=== PATIENT | female | born 1940 | race Caucasian/White ===

== ENCOUNTER 2016-03-23 07:34 | Outpatient (CLI) | payer MEDICARE | END 2016-03-23 07:35 | disposition home or self-care (01) | DX: M51.36 Other intervertebral disc degeneration, lumbar region (principal); M48.8X6 Other specified spondylopathies, lumbar region; M51.46 Schmorl's nodes, lumbar region ==

== ENCOUNTER 2016-05-03 07:55 | Outpatient (CLI) | payer MEDICARE ==
[2016-05-03] MEDS ORDERED: GADOBUTROL 7.5 MMOL/7.5 ML VIAL IVP ONE (09:20)
== END 2016-05-03 07:56 | disposition home or self-care (01) ==
DX: M51.36 Other intervertebral disc degeneration, lumbar region (principal); M51.26 Other intervertebral disc displacement, lumbar region; M51.27 Other intervertebral disc displacement, lumbosacral region; M51.46 Schmorl's nodes, lumbar region; M47.816 Spondylosis without myelopathy or radiculopathy, lumbar region
CPT/HCPCS: 36415; 72158; 80048; A9585

== ENCOUNTER 2016-06-02 10:47 | Outpatient (CLI) | payer MEDICARE | END 2016-06-02 10:48 | disposition home or self-care (01) | DX: M50.31 Other cervical disc degeneration, high cervical region (principal); M47.812 Spondylosis without myelopathy or radiculopathy, cervical region; M43.12 Spondylolisthesis, cervical region ==

== ENCOUNTER 2016-06-18 07:47 | Outpatient (CLI) | payer MEDICARE ==
[2016-06-18] MEDS ORDERED: GADOBUTROL 7.5 MMOL/7.5 ML VIAL IVP ONE (09:41)
== END 2016-06-18 07:48 | disposition home or self-care (01) ==
DX: M50.30 Other cervical disc degeneration, unspecified cervical region (principal); M54.5 Low back pain
CPT/HCPCS: 36415; 72156; 80048; A9585

== ENCOUNTER 2016-08-16 16:20 | Outpatient (CLI) | payer MEDICARE | END 2016-08-16 16:21 | disposition home or self-care (01) | LOC: LAB.WCP 16:20 | PROVIDERS: ATTEND Family Medicine | DX: E03.9 Hypothyroidism, unspecified (principal) | CPT/HCPCS: 36415; 84443 ==

== ENCOUNTER 2016-08-17 10:43 | Outpatient (CLI) | payer MEDICARE ==
--- NOTE | 2016-08-17 13:41 | Mammography Report ---
DIGITAL DIAGNOSTIC BILATERAL MAMMOGRAM: 08/17/2016 CLINICAL INDICATION: Left lateral breast pain, a sister with history of breast cancer. COMPARISON: 07/23/2015, 06/24/2014, 05/17/2013, 05/16/2012, 05/04/2011, 05/01/2010, 04/02/2009. TECHNIQUE: Bilateral CC and MLO, left true lateral and laterally exaggerated craniocaudal views. Th e patient described the pain as diffuse throughout the lateral breast, so no marker could be placed. FINDINGS: The breasts again demonstrate scattered fibroglandular densities bilaterally. Intramammar y lymph nodes are unchanged. No suspicious masses, clustered microcalcifications, or regions of arch itectural distortion are identified. IMPRESSION: BENIGN FINDINGS. RECOMMENDATION: Routine annual screening unless otherwise clinically indicated. BI-RADS category 2, benign findings. STANDARD QUALIFYING STATEMENTS 1. This examination was reviewed with the aid of Computer-Aided Detection (CAD). 2. A negative or benign imaging report should not delay biopsy if clinically suspicious findings are present. Consider surgical consultation if warranted. More than 5% of cancers are not identified by i maging. 3. Dense breasts may obscure an underlying neoplasm. JOB #: [id number] EXT JOB #:[id number]
== END 2016-08-17 10:44 | disposition home or self-care (01) ==
LOC: DI 10:43
PROVIDERS: ATTEND Family Medicine
DX: N64.4 Mastodynia (principal)
CPT/HCPCS: 77066

== ENCOUNTER 2016-08-22 14:53 | Outpatient (CLI) | payer MEDICARE | END 2016-08-22 14:54 | disposition home or self-care (01) | LOC: LAB.F 14:53 | PROVIDERS: ATTEND Neurological Surgery | DX: Z01.812 Encounter for preprocedural laboratory examination (principal) | CPT/HCPCS: 36415; 82565; 84520 ==

== ENCOUNTER 2017-08-03 13:36 | Outpatient (CLI) | payer MEDICARE | END 2017-08-03 13:37 | disposition home or self-care (01) | LOC: LAB.F 13:36 | PROVIDERS: ATTEND Family Medicine | DX: E03.9 Hypothyroidism, unspecified (principal) | CPT/HCPCS: 36415; 84443 ==

== ENCOUNTER 2017-08-25 10:26 | Outpatient (CLI) | payer MEDICARE ==
[2017-08-25 13:57] LABS: HB2 TOTAL 13.7 g/dL; HEMOGLOBIN A1C 0.45 g/dL; HEMOGLOBIN A1C % 5.2 % (4.6-6.2)
[2017-08-25 14:14] LABS: ALBUMIN 3.9 g/dL (3.2-5.5); ALBUMIN/GLOBULIN RATIO 1.1 (1.0-2.2); BILIRUBIN,TOTAL 0.5 mg/dL (0.2-1.0); CALCIUM 9.3 mg/dL (8.5-10.3); CREATININE 0.8 mg/dL (0.4-1.0); TOTAL PROTEIN 7.5 g/dL (6.7-8.2)
== END 2017-08-25 10:27 | disposition home or self-care (01) ==
LOC: LAB.WCP 10:26
PROVIDERS: ATTEND Family Medicine
DX: R10.9 Unspecified abdominal pain (principal); R73.01 Impaired fasting glucose
CPT/HCPCS: 36415; 80053; 83036

== ENCOUNTER 2017-08-28 10:34 | Outpatient (CLI) | payer MEDICARE ==
--- NOTE | 2017-08-31 15:35 | Mammography Report ---
Procedure Date: 08/28/2017 Accession Number: [id number] / [id number] Procedure: MARICHUY - Screening Mammo Dig Bilat CPT Code: FULL RESULT: EXAM: Screening Mammo Dig Bilat DATE: 08/28/2017 11:00 AM CLINICAL HISTORY: 76-year-old with family history of breast cancer for screening TECHNIQUE: Bilateral CC and MLO views were obtained. COMPARISON: 08/17/2016, 07/23/2015, 06/24/2014, 05/09/2013, 05/16/2012, 05/04/2011, 05/01/2010, 04/02/2009 FINDINGS: The breasts demonstrate diffuse fatty replacement bilaterally. Intramammary lymph node in the left breast is stable. A few punctate, typically benign calcifications are present. No suspicious masses, clustered microcalcifications, or regions of architectural distortion are identified. IMPRESSION: Benign findings RECOMMENDATION: Routine annual screening unless otherwise clinically indicated. BIRADS CATEGORY 2: Benign findings STANDARD QUALIFYING STATEMENTS: 1. This examination was reviewed with the aid of Computer-Aided Detection (CAD). 2. A negative or benign imaging report should not delay biopsy if clinically suspicious findings are present. Consider surgical consultation if warrented. More than 5% of cancers are not identified by imaging. 3. Dense breasts may obscure an underlying neoplasm.
== END 2017-08-28 10:35 | disposition home or self-care (01) ==
LOC: DI 10:34
PROVIDERS: ATTEND Family Medicine
DX: Z12.31 Encounter for screening mammogram for malignant neoplasm of breast (principal); Z80.3 Family history of malignant neoplasm of breast
CPT/HCPCS: 77067

== ENCOUNTER 2017-09-08 12:57 | Outpatient (CLI) | payer MEDICARE ==
--- NOTE | 2017-09-08 15:50 | Ultrasound Report ---
Procedure Date: 09/08/2017 Accession Number: [id number] / [id number] Procedure: US - Abdomen Complete CPT Code: FULL RESULT: EXAM: Abdomen Complete DATE: 09/08/2017 3:19 PM CLINICAL HISTORY: ABDOMINAL PAIN COMPARISON: None. TECHNIQUE: Real-time scanning was performed with static images obtained. FINDINGS: Liver: Normal in size and echotexture. 13.3 cm. Main portal vein flow: Hepatopetal. Gallbladder: No stones, wall thickening, or sonographic Barnhart's sign. Biliary System: Common bile duct measures 3.4 mm. No intrahepatic or extrahepatic ductal dilatation. Pancreas: Imaged portion is unremarkable. Kidneys: Right: 9.3 cm longitudinally. Normal. No contour-deforming mass, stones, or hydronephrosis. Left: 9.7 cm longitudinally. Normal. No contour-deforming mass, stones, or hydronephrosis. Spleen: 8.5 cm. Normal in size and echotexture. Aorta and Inferior Vena Cava: Unremarkable. Free fluid: None IMPRESSION: Normal abdomen ultrasound. RADIA
== END 2017-09-08 12:58 | disposition home or self-care (01) ==
LOC: DI 12:57
PROVIDERS: ATTEND Family Medicine
DX: R10.9 Unspecified abdominal pain (principal)
CPT/HCPCS: 76700

== ENCOUNTER 2018-03-30 14:45 | Outpatient (CLI) | payer MEDICARE ==
--- NOTE | 2018-04-02 12:01 | DEXA Report ---
Reason: ASYMPTOMATIC MENOPAUSAL STATE Procedure Date: 03/30/2018 Accession Number: [id number] / [id number] Procedure: DEX - Dexa Spine and/or Hip CPT Code: FULL RESULT: EXAM: Dexa Spine and/or Hip DATE: 03/30/2018 3:15 PM CLINICAL HISTORY: ASYMPTOMATIC POST MENOPAUSAL STATE TECHNIQUE: Dual energy x-ray absorptiometry (DXA) was performed on a [employer] System. Regions measured are the AP Spine, femoral neck, and if needed forearm. COMPARISON: 04/11/2007 In accordance with the International Society for Clinical Densitometry (ISCD) guidelines, data from previous exams may be reanalyzed using current recommendations and techniques. This is done to allow a more accurate basis for comparison with the current study. FINDINGS: The data for the lumbar spine is as follows: BMD (g/cm/cm) T-SCORE Z-SCORE REGION L1 1.051 -0.7 1.5 L2 1.250 0.4 2.6 L3 1.390 1.6 3.8 L4 1.099 -0.8 1.4 TOTAL 1.193 0.1 2.3 NOTE: All evaluable vertebrae are used for classification The data for the hip is as follows: BMD (g/cm/cm) T-SCORE Z-SCORE REGION Neck 0.904 -1.0 1.4 TOTAL 0.947 -0.5 1.7 NOTE: The femoral neck or total proximal femur, whichever is lowest, is used for classification. IMPRESSION: THE WHO CLASSIFICATION BASED ON THE INTERNATIONAL REFERENCE STANDARD IS NORMAL. THE FRACTURE RISK IS NOT INCREASED. RECOMMENDATION: Patients with diagnosis of osteoporosis or osteopenia should have regular bone mineral density assessment. For those eligible for Medicare, routine testing is allowed once every 2 years. Testing frequency can be increased for patients who have rapidly progressing disease or for those who are receiving medical therapy to restore bone mass. COMMENT: World Health Organization (WHO) definitions for osteoporosis and osteopenia: NORMAL BMD: T-score at -1.0 or higher, fracture risk is low OSTEOPENIA BMD: T-score between -1.0 and -2.5, fracture risk is increased. OSTEOPOROSIS BMD: T-score at -2.5 or lower, fracture risk is high. National Osteoporosis Foundation recommends: 1. Obtain adequate dietary calcium (at least 1200 mg per day) and vitamin D (400-800 international units per day). 2. Participate, as appropriate, in regular weightbearing and muscle-strengthening exercise. 3. Avoid tobacco use and reduce alcohol and caffeine intake. 4. For more detailed information see the website at www.NOF.org.
== END 2018-03-30 14:46 | disposition home or self-care (01) ==
LOC: DI 14:45
PROVIDERS: ATTEND Internal Medicine
DX: Z78.0 Asymptomatic menopausal state (principal)
CPT/HCPCS: 77080

== ENCOUNTER 2018-06-28 08:00 | Outpatient (CLI) | payer MEDICARE | END 2018-06-28 23:59 | disposition home or self-care (01) | LOC: LAB.WCP 08:00 → LAB.F 23:59 | PROVIDERS: ATTEND Registered Nurse | DX: J02.9 Acute pharyngitis, unspecified (principal) ==

== ENCOUNTER 2018-06-29 08:00 | Outpatient (CLI) | payer MEDICARE | END 2018-06-29 23:59 | disposition home or self-care (01) | LOC: LAB.R 08:00 | PROVIDERS: ATTEND Registered Nurse | DX: J02.9 Acute pharyngitis, unspecified (principal) | CPT/HCPCS: 87070 ==

== ENCOUNTER 2018-07-06 10:25 | Outpatient (CLI) | payer MEDICARE ==
--- NOTE | 2018-07-06 11:21 | XRAY Report ---
Reason: CHEST CONGESTION Procedure Date: 07/06/2018 Accession Number: [id number] / [id number] Procedure: XR - Chest 2 View X-Ray CPT Code: 26961 FULL RESULT: EXAM: CHEST RADIOGRAPHY EXAM DATE: 07/06/2018 10:34 AM. CLINICAL HISTORY: CHEST CONGESTION. POSSIBLE PNEUMONIA. COMPARISON: XR CHEST PA AND LAT 06/09/2007 10:05 AM. TECHNIQUE: 2 views. FINDINGS: Lungs/Pleura: Bilateral upper lung zone emphysema. No change in bilateral apical scarring, more severe on the left side. The left-sided scarring is associated with mild left us unchanged. No acute abnormality. Mediastinum: Heart and mediastinal contours are unremarkable. Other: None. IMPRESSION: 1. COPD with stable left apical scarring and volume loss. 2. Otherwise, no acute cardiopulmonary abnormality. RADIA
== END 2018-07-06 10:26 | disposition home or self-care (01) ==
LOC: DI 10:25
PROVIDERS: ATTEND Registered Nurse
DX: J44.9 Chronic obstructive pulmonary disease, unspecified (principal)
CPT/HCPCS: 71046

== ENCOUNTER 2019-05-07 09:58 | Outpatient (CLI) | payer MEDICARE ==
[2019-05-07 17:16] LABS: BASOPHILS # (AUTO) 0.1 10^3/uL (0.0-0.1); BASOPHILS % (AUTO) 1.1 %; EOSINOPHILS # (AUTO) 0.1 10^3/uL (0.0-0.7); EOSINOPHILS % (AUTO) 2.1 %; HGB - HEMOGLOBIN 11.7 g/dL (12.0-16.0); LYMPHOCYTES # (AUTO) 1.6 10^3/uL (1.5-3.5); LYMPHOCYTES % (AUTO) 25.2 %; MEAN CORPUSCULAR HEMOGLOBIN 34.6 pg (27.0-31.0); MEAN CORPUSCULAR HGB CONC 32.1 g/dL (32.0-36.0); MONOCYTES # (AUTO) 0.5 10^3/uL (0.0-1.0); MONOCYTES % (AUTO) 8.2 %; NEUTROPHILS % (AUTO) 63.2 %; PLT - PLATELET COUNT 286 10^3/uL (130-450); RED BLOOD COUNT 3.38 10^6/uL (4.20-5.40); RED CELL DISTRIBUTION WIDTH 12.8 % (12.0-15.0); WHITE BLOOD COUNT 6.3 x10^3/uL (4.8-10.8)
[2019-05-07 17:47] LABS: ALBUMIN 4.2 g/dL (3.2-5.5); ALBUMIN/GLOBULIN RATIO 1.4 (1.0-2.2); ALKALINE PHOSPHATASE 36 IU/L (42-121); ALT ALANINE AMINOTRANSFERASE 12 IU/L (10-60); AST ASPARTATE AMINOTRANSFERASE 23 IU/L (10-42); BILIRUBIN,TOTAL 0.7 mg/dL (0.2-1.0); BUN - BLOOD UREA NITROGEN 17 mg/dL (6-20); CALCIUM 9.1 mg/dL (8.5-10.3); CARBON DIOXIDE - CO2 26 mmol/L (21-32); CHLORIDE 103 mmol/L (101-111); CHOLESTEROL 206 mg/dL; CREATININE 0.7 mg/dL (0.4-1.0); GFR - MDRD 81 (>89); GLUCOSE 83 mg/dL (70-100); HDL CHOLESTEROL 104 mg/dL; LDL CHOLESTEROL,CALCULATED 68 mg/dL; LDL/HDL RATIO 0.7 (<4.4); SODIUM 138 mmol/L (135-145); TOTAL PROTEIN 7.2 g/dL (6.7-8.2); VLDL CHOLESTEROL 34 mg/dL
[2019-05-07 19:46] LABS: FREE T4 (FREE THYROXINE) 0.64 ng/dL (0.58-1.64)
== END 2019-05-07 09:59 | disposition home or self-care (01) ==
LOC: LAB.S 09:58
PROVIDERS: ATTEND Registered Nurse
DX: Z13.228 Encounter for screening for other metabolic disorders (principal); Z13.29 Encounter for screening for other suspected endocrine disorder; Z13.0 Encounter for screening for diseases of the blood and blood-forming organs and certain disorders involving the immune mechanism
CPT/HCPCS: 36415; 80053; 80061; 83721; 84439; 84443; 85025

== ENCOUNTER 2019-05-15 13:54 | Outpatient (CLI) | payer MEDICARE ==
--- NOTE | 2019-05-20 13:11 | DEXA Report ---
Reason: POSTMENOPAUSAL Procedure Date: 05/15/2019 Accession Number: [id number] / [id number] Procedure: DEX - Dexa Spine and/or Hip CPT Code: Final Report FULL RESULT: EXAM: Dexa Spine and/or Hip DATE: 05/15/2019 2:43 PM CLINICAL HISTORY: POSTMENOPAUSAL TECHNIQUE: Dual energy x-ray absorptiometry (DXA) was performed on a [employer] System. Regions measured are the AP Spine, femoral neck, and if needed forearm. COMPARISON: 03/30/2018. In accordance with the International Society for Clinical Densitometry (ISCD) guidelines, data from previous exams may be reanalyzed using current recommendations and techniques. This is done to allow a more accurate basis for comparison with the current study. FINDINGS: The data for the lumbar spine is as follows: BMD (g/cm/cm) T-SCORE Z-SCORE REGION L1 1.025 -0.9 1.5 L2 1.248 0.4 2.8 L3 1.321 1.0 3.4 L4 1.143 -0.5 1.9 TOTAL 1.184 0.0 2.4 NOTE: All evaluable vertebrae are used for classification The data for the hip is as follows: BMD (g/cm/cm) T-SCORE Z-SCORE REGION Neck 0.897 -1.0 1.5 TOTAL 0.947 -0.5 1.9 NOTE: The femoral neck or total proximal femur, whichever is lowest, is used for classification. DXA RESULTS SUMMARY: Spine SCAN DATE AGE BMD CHANGE VS CHANGE VS PREVIOUS PREVIOUS % [birth year][age][birth year]/2019 [age] 1.184 -0.009 -0.8 03/30/2018 [age] 1.193 * Denotes significant change at the 95% confidence level. Denotes dissimilar scan types or analysis methods. DXA RESULTS SUMMARY: Hip SCAN DATE AGE BMD CHANGE VS CHANGE VS PREVIOUS PREVIOUS % [birth year]2019 78.6 0[age]947 0.000 0.0 03[birth year]30[birth year]2018 77.5 0.947 * Denotes significant change at the 95% confidence level. Denotes dissimilar scan types or analysis methods. IMPRESSION: THE WHO CLASSIFICATION BASED ON THE INTERNATIONAL REFERENCE STANDARD IS NORMAL. THE FRACTURE RISK IS NOT INCREASED. RECOMMENDATION: Patients with diagnosis of osteoporosis or osteopenia should have regular bone mineral density assessment. For those eligible for Medicare, routine testing is allowed once every 2 years. Testing frequency can be increased for patients who have rapidly progressing disease or for those who are receiving medical therapy to restore bone mass. COMMENT: World Health Organization (WHO) definitions for osteoporosis and osteopenia: NORMAL BMD: T-score at -1.0 or higher, fracture risk is low OSTEOPENIA BMD: T-score between -1.0 and -2.5, fracture risk is increased. OSTEOPOROSIS BMD: T-score at -2.5 or lower, fracture risk is high. National Osteoporosis Foundation recommends: 1. Obtain adequate dietary calcium (at least 1200 mg per day) and vitamin D (400-800 international units per day). 2. Participate, as appropriate, in regular weightbearing and muscle-strengthening exercise. 3. Avoid tobacco use and reduce alcohol and caffeine intake. 4. For more detailed information see the website at www.NOF.org.
== END 2019-05-15 13:55 | disposition home or self-care (01) ==
LOC: DI 13:54
PROVIDERS: ATTEND Registered Nurse
DX: Z78.0 Asymptomatic menopausal state (principal)
CPT/HCPCS: 77080

== ENCOUNTER 2019-05-22 13:16 | Outpatient (CLI) | payer MEDICARE ==
[~2019-05-22 13:16] MED LIST: ALBUTEROL NEB 2.5 MG/3 ML INH ONE
== END 2019-05-22 13:17 | disposition home or self-care (01) ==
LOC: RT 13:16
PROVIDERS: ATTEND Registered Nurse
DX: J44.9 Chronic obstructive pulmonary disease, unspecified (principal); J34.9 Unspecified disorder of nose and nasal sinuses
CPT/HCPCS: 94060

== ENCOUNTER 2019-10-15 14:53 | Outpatient (CLI) | payer MEDICARE ==
--- NOTE | 2019-10-16 11:33 | Mammography Report ---
BILATERAL DIGITAL SCREENING MAMMOGRAM 3D/2D: 10/15/2019 CLINICAL: Routine screening. Comparison is made to exams dated: 08/28/2017 mammogram, 08/17/2016 mammogram, 07/23/2015 mammogram, 06/24 mammogram, 05/17/2013 mammogram, and 05/16/2012 mammogram - [facility]. There are scattered fibroglandular elements in both breasts. No significant masses, calcifications, or other findings are seen in either breast. There has been no significant interval change. IMPRESSION: NEGATIVE There is no mammographic evidence of malignancy. A 1 year screening mammogram is recommended. This exam was interpreted at Station ID: [id number]. NOTE: For mammograms, a report in lay terms will be sent to the patient. Approximately 15% of breast malignancies will not be visualized mammographically. In the management of a palpable breast mass, a negative mammogram must not discourage biopsy of a clinically suspicious lesion. Electronically Signed By: Radha garza/jazmine:10/15/2019 16:22:05 ACR BI-RADS Category 1: Negative 3341F PARENCHYMAL PATTERN: (A) - The breast(s) demonstrate(s) scattered fibroglandular densities. BI-RADS CATEGORY: (1) - 1 RECOMMENDATION: (ANNUAL) - Recommend routine annual screening mammography. [id number] 1 year screening LATERALITY: (B)
== END 2019-10-15 14:54 | disposition home or self-care (01) ==
LOC: DI 14:53
PROVIDERS: ATTEND Registered Nurse
DX: Z12.31 Encounter for screening mammogram for malignant neoplasm of breast (principal)
CPT/HCPCS: 77063; 77067

== ENCOUNTER 2020-01-16 12:51 | Outpatient (CLI) | payer MEDICARE ==
--- NOTE | 2020-01-16 14:21 | XRAY Report ---
PROCEDURE: Shoulder 2 View LT INDICATIONS: LT SHOULDER PAIN M25.512 TECHNIQUE: 3 views of the shoulder were acquired. COMPARISON: None. FINDINGS: Bones: No acute fractures or dislocations. Degenerative changes of the left acromioclavicular joint. The coracoclavicular and acromioclavicular intervals are maintained. No suspicious bony lesions. Vi sualized ribs appear intact. Soft tissues: No suspicious soft tissue calcifications. Left apical and left upper lobe scarring. IMPRESSION: Left shoulder without acute radiographic abnormalities. Mild left acromioclavicular osteoarthrosis. Reviewed by: Matthew Dennis MD on 01/16/2020 2:19 PM PDT Approved by: Matthew Dennis MD on 01/16/2020 2:19 PM PDT Station ID: [id number]
== END 2020-01-16 12:52 | disposition home or self-care (01) ==
LOC: DI.S 12:51
PROVIDERS: ATTEND Registered Nurse
DX: M19.012 Primary osteoarthritis, left shoulder (principal)

== ENCOUNTER 2020-04-21 09:53 | Outpatient (CLI) | payer MEDICARE ==
[2020-04-21 14:37] LABS: BASOPHILS # (AUTO) 0.1 10^3/uL (0.0-0.1); BASOPHILS % (AUTO) 0.8 %; EOSINOPHILS # (AUTO) 0.1 10^3/uL (0.0-0.7); EOSINOPHILS % (AUTO) 1.2 %; HGB - HEMOGLOBIN 11.9 g/dL (12.0-16.0); LYMPHOCYTES # (AUTO) 1.6 10^3/uL (1.5-3.5); LYMPHOCYTES % (AUTO) 18.8 %; MEAN CORPUSCULAR HEMOGLOBIN 34.1 pg (27.0-31.0); MEAN CORPUSCULAR HGB CONC 32.1 g/dL (32.0-36.0); MEAN CORPUSCULAR VOLUME 106.3 fL (81.0-99.0); MEAN PLATELET VOLUME 9.9 fL (7.9-10.8); MONOCYTES # (AUTO) 0.6 10^3/uL (0.0-1.0); MONOCYTES % (AUTO) 6.6 %; NEUTROPHILS # (AUTO) 6.1 10^3/uL (1.5-6.6); NEUTROPHILS % (AUTO) 72.4 %; PLT - PLATELET COUNT 329 10^3/uL (130-450); RED BLOOD COUNT 3.49 10^6/uL (4.20-5.40); RED CELL DISTRIBUTION WIDTH 13.3 % (12.0-15.0); WHITE BLOOD COUNT 8.5 x10^3/uL (4.8-10.8)
[2020-04-21 14:58] LABS: ALBUMIN/GLOBULIN RATIO 1.3 (1.0-2.2); ALKALINE PHOSPHATASE 56 IU/L (42-121); ALT ALANINE AMINOTRANSFERASE 11 IU/L (10-60); AST ASPARTATE AMINOTRANSFERASE 20 IU/L (10-42); BILIRUBIN,TOTAL 0.3 mg/dL (0.2-1.0); BUN - BLOOD UREA NITROGEN 16 mg/dL (6-20); CALCIUM 9.5 mg/dL (8.5-10.3); CARBON DIOXIDE - CO2 26 mmol/L (21-32); CHLORIDE 102 mmol/L (101-111); CREATININE 0.7 mg/dL (0.4-1.0); GLUCOSE 84 mg/dL (70-100); TOTAL PROTEIN 7.2 g/dL (6.7-8.2)
[2020-04-21 14:59] LABS: CHOLESTEROL 199 mg/dL; HDL CHOLESTEROL 102 mg/dL; LDL CHOLESTEROL,CALCULATED 59 mg/dL; LDL/HDL RATIO 0.6 (<4.4); VLDL CHOLESTEROL 38 mg/dL
== END 2020-04-21 09:54 | disposition home or self-care (01) ==
LOC: LAB.S 09:53
PROVIDERS: ATTEND Registered Nurse
DX: K52.9 Noninfective gastroenteritis and colitis, unspecified (principal); R07.9 Chest pain, unspecified; J44.9 Chronic obstructive pulmonary disease, unspecified; R73.02 Impaired glucose tolerance (oral); E03.9 Hypothyroidism, unspecified; F41.9 Anxiety disorder, unspecified; F32.9 Major depressive disorder, single episode, unspecified
CPT/HCPCS: 36415; 80053; 80061; 83721; 84443; 85025

== ENCOUNTER 2020-06-22 13:51 | Outpatient (CLI) | payer MEDICARE | END 2020-06-22 13:52 | disposition home or self-care (01) | LOC: NS 13:51 | PROVIDERS: ATTEND Physician Assistant | DX: Z71.3 Dietary counseling and surveillance (principal); R63.4 Abnormal weight loss; Z68.1 Body mass index [BMI] 19.9 or less, adult | CPT/HCPCS: 97802 ==

== ENCOUNTER 2020-07-06 13:56 | Outpatient (CLI) | payer MEDICARE | END 2020-07-06 13:57 | disposition home or self-care (01) | LOC: NS 13:56 | PROVIDERS: ATTEND Physician Assistant | DX: Z71.3 Dietary counseling and surveillance (principal); R63.4 Abnormal weight loss | CPT/HCPCS: 97803 ==

== ENCOUNTER 2020-07-09 14:27 | Outpatient (CLI) | payer MEDICARE ==
[2020-07-09 20:02] LABS: ABSOLUTE RETICS # AUTO 0.044 10^6/uL (0.020-0.110); BASOPHILS # (AUTO) 0.1 10^3/uL (0.0-0.1); BASOPHILS % (AUTO) 0.8 %; EOSINOPHILS % (AUTO) 0.4 %; HCT - HEMATOCRIT 34.3 % (37.0-47.0); LYMPHOCYTES # (AUTO) 1.3 10^3/uL (1.5-3.5); LYMPHOCYTES % (AUTO) 16.4 %; MEAN CORPUSCULAR HEMOGLOBIN 33.6 pg (27.0-31.0); MEAN CORPUSCULAR HGB CONC 32.1 g/dL (32.0-36.0); MEAN CORPUSCULAR VOLUME 104.9 fL (81.0-99.0); MEAN PLATELET VOLUME 9.7 fL (7.9-10.8); MONOCYTES # (AUTO) 0.5 10^3/uL (0.0-1.0); MONOCYTES % (AUTO) 6.7 %; NEUTROPHILS # (AUTO) 5.8 10^3/uL (1.5-6.6); NEUTROPHILS % (AUTO) 75.6 %; PLT - PLATELET COUNT 308 10^3/uL (130-450); RED BLOOD COUNT 3.27 10^6/uL (4.20-5.40); RED CELL DISTRIBUTION WIDTH 12.9 % (12.0-15.0); RETICULOCYTE COUNT % (AUTO) 1.33 % (0.5-2.3); WHITE BLOOD COUNT 7.6 x10^3/uL (4.8-10.8)
[2020-07-09 20:19] LABS: % IRON SATURATION 11 % (20-50); IRON 41 ug/dL (28-170); TOTAL IRON BINDING CAPACITY 360 ug/dL (250-450); TRANSFERRIN 257 mg/dL (192-382)
[2020-07-09 20:35] LABS: FERRITIN 148.6 ng/mL (11.0-306.8)
[2020-07-09 20:39] LABS: FOLATE 13.03 ng/mL (5.90 - >24.8)
== END 2020-07-09 14:28 | disposition home or self-care (01) ==
LOC: LAB.S 14:27
PROVIDERS: ATTEND Registered Nurse
DX: K52.9 Noninfective gastroenteritis and colitis, unspecified (principal)
CPT/HCPCS: 36415; 81599; 82607; 82728; 82746; 83540; 84466; 85025; 85045

== ENCOUNTER 2020-07-14 08:00 | Outpatient (CLI) | payer MEDICARE ==
--- NOTE | 2020-07-14 14:17 | XRAY Report ---
PROCEDURE: Chest 2 View X-Ray INDICATIONS: COUGH TECHNIQUE: 2 view(s) of the chest. COMPARISON: 07/06/2018 chest x-ray FINDINGS: Surgical changes and devices: None. Lungs and pleura: No pleural effusions or pneumothorax. No change in left apical scarring. Lungs ar e otherwise clear. Mediastinum: Mediastinal contours are normal. Heart size is normal. Bones and chest wall: No suspicious bony abnormalities. Soft tissues appear unremarkable. IMPRESSION: No acute process. Reviewed by: Mitzy Pool MD on 07/14/2020 2:16 PM PDT Approved by: Mitzy Pool MD on 07/14/2020 2:16 PM PDT Station ID: [id number]
== END 2020-07-14 23:59 | disposition home or self-care (01) ==
LOC: DI.S 08:00
PROVIDERS: ATTEND Physician Assistant
DX: R05 Cough (principal)
CPT/HCPCS: 71046; U0004

== ENCOUNTER 2020-08-21 11:25 | Emergency (ER) | payer MEDICARE ==
[2020-08-21 11:45] LABS: BASOPHILS # (AUTO) 0.1 10^3/uL (0.0-0.1); BASOPHILS % (AUTO) 0.7 %; EOSINOPHILS % (AUTO) 0.3 %; HCT - HEMATOCRIT 35.7 % (37.0-47.0); HGB - HEMOGLOBIN 11.9 g/dL (12.0-16.0); LYMPHOCYTES % (AUTO) 11.8 %; MEAN CORPUSCULAR HEMOGLOBIN 34.8 pg (27.0-31.0); MEAN CORPUSCULAR HGB CONC 33.3 g/dL (32.0-36.0); MEAN CORPUSCULAR VOLUME 104.4 fL (81.0-99.0); MEAN PLATELET VOLUME 9.3 fL (7.9-10.8); MONOCYTES # (AUTO) 0.6 10^3/uL (0.0-1.0); MONOCYTES % (AUTO) 6.4 %; NEUTROPHILS % (AUTO) 80.6 %; PLT - PLATELET COUNT 274 10^3/uL (130-450); RED BLOOD COUNT 3.42 10^6/uL (4.20-5.40); RED CELL DISTRIBUTION WIDTH 13.1 % (12.0-15.0); WHITE BLOOD COUNT 8.7 x10^3/uL (4.8-10.8)
[2020-08-21 11:59] LABS: VBG HCO3 24.7 mmol/L (23-28); VBG PCO2 41.3 mmHg (41-51); VBG PH 7.395 (7.31-7.41); VBG PO2 19.2 mmHg (25-47)
[2020-08-21 12:00] LABS: VBG BASE EXCESS -0.2 mmol/L (-2 - +2); VBG OXYGEN SATURATION 31.5 % (60-80)
[2020-08-21 12:05] LABS: ALBUMIN 4.1 g/dL (3.2-5.5); ALBUMIN/GLOBULIN RATIO 1.1 (1.0-2.2); BILIRUBIN,TOTAL 0.5 mg/dL (0.2-1.0); CALCIUM 9.6 mg/dL (8.5-10.3); CREATININE 0.8 mg/dL (0.4-1.0); POTASSIUM 3.6 mmol/L (3.5-5.0); TOTAL PROTEIN 7.9 g/dL (6.7-8.2)
--- OUTSIDE RECORDS SUMMARY | 2020-08-21 12:13 | EXTERNAL MEDICAL SUMMARY RPT | Continuity of Care Document ---
:1940 Demographics Phone Unavailable Preferred Language Unknown Marital Status Unknown Alevism Affiliation Unknown Race Unknown Ethnic Group Unknown Author Organization [place] Address [address] [phone] Phone Allergies Encounters Medications Problems Results
--- NOTE | 2020-08-21 12:15 | ED Physician Documentation ---
History of Present Illness - Stated complaint Stated Complaint: CHEST PX - Chief complaint Chief Complaint: Cardiac - History obtained from History obtained from: Patient - Additonal information Additional information: 79-year-old woman with history of COPD, left-sided pneumonia diagnosed this past month, presents with gradual in onset intermittent shortness of breath associated with substernal chest pain occasionally radiating to the left neck since . Nonexertional, not associated with cough or hemoptysis. She has had intermittent leg swelling but does not have any at present. Denies back pain, nausea, diaphoresis, abdominal pain. She has a remote history of smoking. 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 CHEMISTRY: Hysterectomy - Present Medications Home Medications: Ambulatory Orders Medication Instructions Recorded Confirmed Cetirizine [ZyrTEC] 10 mg PO DAILY 01/20/16 01/20/16 Cholecalciferol (Vitamin D3) 400 unit PO DAILY 01/20/16 01/20/16 [Vitamin D3] Estrogens, Conjugated [Premarin] 0.625 mg PO DAILY 01/20/16 01/20/16 Guaifenesin [Mucinex] 600 mg PO DAILY PRN 01/20/16 01/20/16 Levothyroxine [Synthroid] 88 mcg PO QDAC 01/20/16 01/20/16 Triamcinolone Acetonide [Nasacort] 10.8 ml NS DAILY PRN 01/20/16 01/20/16 - Allergies Allergies/Adverse Reactions: Allergies Allergy/AdvReac Type Severity Reaction Status Date / Time acetaminophen [From Tylenol] Allergy Rash Verified 01/19/16 16:44 Influenza Virus Vaccines Allergy Rash Verified 01/19/16 16:44 Penicillins Allergy Rash Verified 01/19/16 16:44 prednisone Allergy Edema Verified 08/21/20 11:29 PD ED PE NORMAL - Vitals Vital signs reviewed: Yes - General General: Alert and oriented X 3, No acute distress, Well developed/nourished - HEENT HEENT: Atraumatic, PERRL, EOMI - Neck Neck: Supple, no meningeal sign - Cardiac Cardiac: RRR - Respiratory Respiratory: No respiratory distress, Clear bilaterally - Abdomen Abdomen: Non tender, Non distended - Derm Derm: Normal color - Extremities Extremities: No deformity, No edema - Neuro Neuro: Alert and oriented X 3 - Psych Psych: Normal mood, Normal affect Results - Vitals Vitals: Vital Signs - 24 hr 08/21/20 08/21/20 08/21/20 11:30 12:07 12:30 Temperature 36.4 C L 36.8 C Heart Rate 84 69 68 Respiratory 18 17 17 Rate Blood Pressure 152/73 H 136/70 H 114/85 H O2 Saturation 99 97 98 08/21/20 08/21/20 08/21/20 13:00 13:30 14:39 Temperature 36.8 C 36.4 C L Heart Rate 66 65 65 Respiratory 16 16 Rate Blood Pressure 140/65 H 154/69 H 152/67 H O2 Saturation 95 95 96 Oxygen O2 Source Room air - EKG (time done) 1131 Rate: Rate (enter#) (87) Rhythm: NSR [place]: Other (RBBB, LPFB ) Intervals: Normal RI Compare to prior EKG: Old EKG unavailable - Labs Labs: Laboratory Tests 08/21/20 08/21/20 08/21/20 11:40 11:40 11:40 WBC 8.7 RBC 3.42 L Hgb 11.9 L Hct 35.7 L MCV 104.4 H MCH 34.8 H MCHC 33.3 RDW 13.1 Plt Count 274 MPV 9.3 Neut # (Auto) 7.0 H Lymph # (Auto) 1.0 L [place] # (Auto) 0.6 Eos # (Auto) 0.0 Baso # (Auto) 0.1 Absolute Nucleated RBC 0.00 Nucleated RBC % 0.0 D-Dimer VBG pH VBG pCO2 VBG pO2 VBG HCO3 VBG Total CO2 VBG O2 Saturation VBG Base Excess Sodium 139 Potassium 3.6 Chloride 101 Carbon Dioxide 25 Anion Gap 13.0 BUN 18 Creatinine 0.8 Estimated GFR (MDRD) 69 L Glucose 104 H Calcium 9.6 Total Bilirubin 0.5 AST 19 ALT 12 Alkaline Phosphatase 54 Troponin I High Sens 4.7 B-Natriuretic Peptide Total Protein 7.9 Albumin 4.1 Globulin 3.8 Albumin/Globulin Ratio 1.1 Lipase 48 08/21/20 08/21/20 08/21/20 11:40 11:40 11:55 WBC RBC Hgb Hct MCV MCH MCHC RDW Plt Count MPV Neut # (Auto) Lymph # (Auto) [place] # (Auto) Eos # (Auto) Baso # (Auto) Absolute Nucleated RBC Nucleated RBC % D-Dimer 212.4 VBG pH 7.395 VBG pCO2 41.3 VBG pO2 19.2 L VBG HCO3 24.7 VBG Total CO2 26.0 VBG O2 Saturation 31.5 L VBG Base Excess -0.2 Sodium Potassium Chloride Carbon Dioxide Anion Gap BUN Creatinine Estimated GFR (MDRD) Glucose Calcium Total Bilirubin AST ALT Alkaline Phosphatase Troponin I High Sens B-Natriuretic Peptide 259 H Total Protein Albumin Globulin Albumin/Globulin Ratio Lipase 08/21/20 13:49 WBC RBC Hgb Hct MCV MCH MCHC RDW Plt Count MPV Neut # (Auto) Lymph # (Auto) [place] # (Auto) Eos # (Auto) Baso # (Auto) Absolute Nucleated RBC Nucleated RBC % D-Dimer VBG pH VBG pCO2 VBG pO2 VBG HCO3 VBG Total CO2 VBG O2 Saturation VBG Base Excess Sodium Potassium Chloride Carbon Dioxide Anion Gap BUN Creatinine Estimated GFR (MDRD) Glucose Calcium Total Bilirubin AST ALT Alkaline Phosphatase Troponin I High Sens 4.7 B-Natriuretic Peptide Total Protein Albumin Globulin Albumin/Globulin Ratio Lipase PD MEDICAL DECISION MAKING - ED course ED course: 79-year-old woman presents with atypical chest pain with heart score of 3 (risk factors, age). She is vaccinated against COVID-19 however I will send a Covid swab today just in case. Her pneumonia appears to have resolved on x-ray. Repeat troponin in the ED negative therefore I will send home with strict return precautions and follow-up with her primary doctor. Departure - Departure Disposition: 01 Home, Self Care Clinical Impression: Chest pain, Dyspnea Condition: Good Instructions: ED Dyspnea Shortness of Breath Comments: You were seen in the emergency department for shortness of breath and chest pain. Your work-up showed no signs of blood clots in the lung, heart attack, or other emergent findings for now. Your chest x-ray did not show any pneumonia. You should return to the emergency department if you develop any new or worsening symptoms or have other concerns. Follow-up with your primary doctor for referral to pulmonology. Get lots of rest and keep a coolmist humidifier by the bedside at night. Use your albuterol inhaler as needed.
--- NOTE | 2020-08-21 12:38 | XRAY Report ---
PROCEDURE: Chest 1 View X-Ray INDICATIONS: Chest pain TECHNIQUE: One view of the chest was acquired. COMPARISON: 07/14/2020 FINDINGS: Surgical changes and devices: None. Lungs and pleura: No pleural effusions or pneumothorax. Lungs are clear. Chronic appearing left ap ical scarring is again seen and unchanged. Mediastinum: Mediastinal contours appear normal. Heart size is normal. Bones and chest wall: No suspicious bony lesions. Overlying soft tissues appear unremarkable. IMPRESSION: No acute cardiopulmonary pathology. No significant changes from previous studies. Reviewed by: Tobias Sam MD on 08/21/2020 12:37 PM PDT Approved by: Tobias Sam MD on 08/21/2020 12:37 PM PDT Station ID: [id number]
[2020-08-21 14:40] VITALS: BP 152/67
== END 2020-08-21 15:06 | disposition home or self-care (01) ==
LOC: ED 11:25
DX: R07.89 Other chest pain (principal); R06.02 Shortness of breath; I45.2 Bifascicular block; J43.9 Emphysema, unspecified; Z87.891 Personal history of nicotine dependence; Z20.822 Contact with and (suspected) exposure to COVID-19
CPT/HCPCS: 36415; 71045; 80053; 82803; 83690; 83880; 84484; 85025; 85379; 93005; 99284; U0004

== ENCOUNTER 2020-09-14 13:38 | Outpatient (CLI) | payer MEDICARE ==
[2020-09-14 20:06] LABS: ABSOLUTE RETICS # AUTO 0.043 10^6/uL (0.020-0.110); BASOPHILS # (AUTO) 0.1 10^3/uL (0.0-0.1); BASOPHILS % (AUTO) 0.8 %; EOSINOPHILS % (AUTO) 0.2 %; HCT - HEMATOCRIT 34.8 % (37.0-47.0); LYMPHOCYTES # (AUTO) 1.4 10^3/uL (1.5-3.5); LYMPHOCYTES % (AUTO) 15.9 %; MEAN CORPUSCULAR HEMOGLOBIN 33.4 pg (27.0-31.0); MEAN CORPUSCULAR HGB CONC 31.6 g/dL (32.0-36.0); MEAN CORPUSCULAR VOLUME 105.8 fL (81.0-99.0); MEAN PLATELET VOLUME 9.8 fL (7.9-10.8); MONOCYTES # (AUTO) 0.6 10^3/uL (0.0-1.0); MONOCYTES % (AUTO) 6.5 %; NEUTROPHILS # (AUTO) 6.9 10^3/uL (1.5-6.6); NEUTROPHILS % (AUTO) 76.3 %; PLT - PLATELET COUNT 309 10^3/uL (130-450); RED BLOOD COUNT 3.29 10^6/uL (4.20-5.40); RED CELL DISTRIBUTION WIDTH 12.9 % (12.0-15.0)
[2020-09-14 20:54] LABS: % IRON SATURATION 15 % (20-50); IRON 57 ug/dL (28-170); TOTAL IRON BINDING CAPACITY 371 ug/dL (250-450); TRANSFERRIN 265 mg/dL (192-382)
[2020-09-14 21:04] LABS: FERRITIN 114.4 ng/mL (11.0-306.8)
[2020-09-14 21:07] LABS: FOLATE 7.71 ng/mL (5.90 - >24.8)
== END 2020-09-14 13:39 | disposition home or self-care (01) ==
LOC: LAB.S 13:38
PROVIDERS: ATTEND Registered Nurse
DX: D51.9 Vitamin B12 deficiency anemia, unspecified (principal); R53.83 Other fatigue; R63.4 Abnormal weight loss
CPT/HCPCS: 36415; 81599; 82607; 82728; 82746; 83020; 83540; 84466; 85014; 85018; 85025; 85041; 85045

== ENCOUNTER 2021-01-13 15:16 | Outpatient (CLI) | payer MEDICARE ==
[2021-01-13 20:00] LABS: BASOPHILS # (AUTO) 0.1 10^3/uL (0.0-0.1); EOSINOPHILS # (AUTO) 0.1 10^3/uL (0.0-0.7); EOSINOPHILS % (AUTO) 0.9 %; LYMPHOCYTES # (AUTO) 1.4 10^3/uL (1.5-3.5); LYMPHOCYTES % (AUTO) 20.2 %; MEAN CORPUSCULAR HEMOGLOBIN 33.4 pg (27.0-31.0); MEAN CORPUSCULAR HGB CONC 31.6 g/dL (32.0-36.0); MEAN CORPUSCULAR VOLUME 105.8 fL (81.0-99.0); MEAN PLATELET VOLUME 9.8 fL (7.9-10.8); MONOCYTES # (AUTO) 0.7 10^3/uL (0.0-1.0); MONOCYTES % (AUTO) 9.7 %; NEUTROPHILS # (AUTO) 4.6 10^3/uL (1.5-6.6); NEUTROPHILS % (AUTO) 67.9 %; PLT - PLATELET COUNT 310 10^3/uL (130-450); RED BLOOD COUNT 3.59 10^6/uL (4.20-5.40); RED CELL DISTRIBUTION WIDTH 12.9 % (12.0-15.0); WHITE BLOOD COUNT 6.8 x10^3/uL (4.8-10.8)
[2021-01-13 20:23] LABS: % IRON SATURATION 15 % (20-50); IRON 61 ug/dL (28-170); TOTAL IRON BINDING CAPACITY 413 ug/dL (250-450); TRANSFERRIN 295 mg/dL (192-382)
[2021-01-13 20:35] LABS: FOLATE 9.6 ng/mL (5.90 - >24.8)
== END 2021-01-13 15:17 | disposition home or self-care (01) ==
LOC: LAB.S 15:16
PROVIDERS: ATTEND Registered Nurse
DX: D51.8 Other vitamin B12 deficiency anemias (principal)
CPT/HCPCS: 36415; 82607; 82746; 83540; 84466; 85025

== ENCOUNTER 2021-03-31 08:00 | Outpatient (CLI) | payer MEDICARE ==
[2021-03-31 14:46] LABS: BILIRUBIN,URINE NEGATIVE (NEGATIVE); GLUCOSE, URINE (UA) NEGATIVE (NEGATIVE); KETONES,URINE (UA) NEGATIVE (NEGATIVE); LEUKOCYTE ESTERASE, URINE MODERATE (NEGATIVE); NITRITE,URINE NEGATIVE (NEGATIVE); OCCULT BLOOD,URINE MODERATE (NEGATIVE); PH,URINE 5.5 PH (5.0-7.5); PROTEIN,URINE 100 mg/dL (NEGATIVE); UROBILINOGEN,URINE 0.2 (NORMAL) E.U./dL (NORMAL)
[2021-03-31 14:51] LABS: CLARITY,URINE CLOUDY (CLEAR)
[2021-03-31 14:52] LABS: WBC CLUMPS,URINE PRESENT; WBC,URINE >25 /HPF (0-5)
[2021-03-31 14:53] LABS: BACTERIA,URINE Few /HPF (None Seen); SQUAMOUS EPITHELIAL CELL,UR RARE Squamous (<= Few)
== END 2021-03-31 23:59 | disposition home or self-care (01) ==
LOC: LAB.S 08:00
PROVIDERS: ATTEND Registered Nurse
DX: R05.9 Cough, unspecified (principal); N30.00 Acute cystitis without hematuria; R30.0 Dysuria; Z20.822 Contact with and (suspected) exposure to COVID-19
CPT/HCPCS: 81001; 87077; 87086; 87181; U0004

== ENCOUNTER 2021-04-05 08:00 | Outpatient (CLI) | payer MEDICARE ==
--- NOTE | 2021-04-05 15:50 | XRAY Report ---
PROCEDURE: Chest 2 View X-Ray INDICATIONS: COUGH TECHNIQUE: 2 view(s) of the chest. COMPARISON: Chest x-ray 08/21/2020, 07/06/2018 FINDINGS: Surgical changes and devices: None. Lungs and pleura: Lungs are hyperexpanded suggestive COPD. There is persistent appearance of increase d opacity overlying the right apex slightly more prominent compared to prior exam and has been progre ssive over multiple prior exams.. Mediastinum: Mediastinal contours are normal. Heart size is normal. Bones and chest wall: No suspicious bony abnormalities. Soft tissues appear unremarkable. IMPRESSION: COPD changes with progressive opacification overlying the right upper lobe since 2019. 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 Superimposed airspace disease such as pneumonia should be considered. Additionally , CT chest is recommended for further evaluation to exclude potential underlying pathology such as ma ss lesion. Reviewed by: Nannette Barrera MD on 04/05/2021 3:48 PM PST Approved by: Nannette Barrera MD on 04/05/2021 3:48 PM PST Station ID: [id number]
== END 2021-04-05 23:59 ==
LOC: DI.S 08:00
PROVIDERS: ATTEND Registered Nurse
DX: R05.9 Cough, unspecified (principal); R50.9 Fever, unspecified; J44.9 Chronic obstructive pulmonary disease, unspecified; N30.00 Acute cystitis without hematuria; Z20.822 Contact with and (suspected) exposure to COVID-19
CPT/HCPCS: 36415; 71046; 80053; 85025; U0004

== ENCOUNTER 2021-04-05 08:00 | Outpatient (CLI) | payer MEDICARE ==
[2021-04-05 21:13] LABS: BASOPHILS # (AUTO) 0.1 10^3/uL (0.0-0.1); BASOPHILS % (AUTO) 0.8 %; EOSINOPHILS # (AUTO) 0.4 10^3/uL (0.0-0.7); EOSINOPHILS % (AUTO) 4.7 %; HCT - HEMATOCRIT 35.7 % (37.0-47.0); HGB - HEMOGLOBIN 11.3 g/dL (12.0-16.0); LYMPHOCYTES % (AUTO) 11.8 %; MEAN CORPUSCULAR HEMOGLOBIN 31.9 pg (27.0-31.0); MEAN CORPUSCULAR HGB CONC 31.7 g/dL (32.0-36.0); MEAN CORPUSCULAR VOLUME 100.8 fL (81.0-99.0); MEAN PLATELET VOLUME 9.3 fL (7.9-10.8); MONOCYTES # (AUTO) 0.9 10^3/uL (0.0-1.0); NEUTROPHILS # (AUTO) 6.2 10^3/uL (1.5-6.6); NEUTROPHILS % (AUTO) 72.3 %; PLT - PLATELET COUNT 445 10^3/uL (130-450); RED BLOOD COUNT 3.54 10^6/uL (4.20-5.40); RED CELL DISTRIBUTION WIDTH 12.7 % (12.0-15.0); WHITE BLOOD COUNT 8.5 x10^3/uL (4.8-10.8)
[2021-04-05 21:33] LABS: ALBUMIN 3.4 g/dL (3.2-5.5); ALBUMIN/GLOBULIN RATIO 0.8 (1.0-2.2); BILIRUBIN,TOTAL 0.8 mg/dL (0.2-1.0); CALCIUM 9.2 mg/dL (8.5-10.3); CREATININE 0.8 mg/dL (0.4-1.0); POTASSIUM 3.8 mmol/L (3.5-5.0); TOTAL PROTEIN 7.7 g/dL (6.7-8.2)
== END 2021-04-05 23:59 ==
LOC: LAB.S 08:00
PROVIDERS: ATTEND Registered Nurse
DX: R50.9 Fever, unspecified (principal); N30.00 Acute cystitis without hematuria; Z20.822 Contact with and (suspected) exposure to COVID-19
CPT/HCPCS: 36415; 80053; 85025

== ENCOUNTER 2021-04-07 08:00 | Outpatient (CLI) | payer MEDICARE ==
[2021-04-07 20:06] LABS: BASOPHILS # (AUTO) 0.1 10^3/uL (0.0-0.1); BASOPHILS % (AUTO) 1.3 %; EOSINOPHILS # (AUTO) 0.5 10^3/uL (0.0-0.7); EOSINOPHILS % (AUTO) 6.5 %; HCT - HEMATOCRIT 36.5 % (37.0-47.0); HGB - HEMOGLOBIN 11.9 g/dL (12.0-16.0); LYMPHOCYTES # (AUTO) 1.1 10^3/uL (1.5-3.5); LYMPHOCYTES % (AUTO) 13.4 %; MEAN CORPUSCULAR HEMOGLOBIN 33.1 pg (27.0-31.0); MEAN CORPUSCULAR HGB CONC 32.6 g/dL (32.0-36.0); MEAN CORPUSCULAR VOLUME 101.7 fL (81.0-99.0); MEAN PLATELET VOLUME 9.1 fL (7.9-10.8); MONOCYTES # (AUTO) 0.7 10^3/uL (0.0-1.0); MONOCYTES % (AUTO) 9.3 %; NEUTROPHILS # (AUTO) 5.5 10^3/uL (1.5-6.6); NEUTROPHILS % (AUTO) 69.1 %; PLT - PLATELET COUNT 469 10^3/uL (130-450); RED BLOOD COUNT 3.59 10^6/uL (4.20-5.40); RED CELL DISTRIBUTION WIDTH 12.8 % (12.0-15.0); WHITE BLOOD COUNT 7.9 x10^3/uL (4.8-10.8)
[2021-04-07 20:13] LABS: CALCIUM 9.4 mg/dL (8.5-10.3); CREATININE 0.7 mg/dL (0.4-1.0)
== END 2021-04-07 23:59 | disposition home or self-care (01) ==
LOC: LAB.S 08:00
PROVIDERS: ATTEND Emergency Medicine
DX: J18.9 Pneumonia, unspecified organism (principal)
CPT/HCPCS: 36415; 80048; 85025

== ENCOUNTER 2021-04-21 14:36 | Outpatient (CLI) | payer MEDICARE ==
[2021-04-21] MEDS ORDERED: IOVERSOL 320 100 ML VIAL IVP ONE (14:48)
[2021-04-21] MEDS: IOVERSOL 320 100 ML VIAL IVP ONE (16:47)
--- NOTE | 2021-04-21 18:10 | CT Report ---
PROCEDURE: CHEST W INDICATIONS: PNA, COPD, WEIGHT LOSS CONTRAST: IV CONTRAST: Optiray 320 ml: 100 PO CONTRAST: *NO PO CONTRAST TECHNIQUE: After the administration of intravenous contrast, 1 mm axial images were acquired from the pulmonary apices through the posterior costophrenic angles. Axial 5 mm soft tissue kernel reconstructions were performed as well as 8 mm axial MIP and coronal and sagittal 5 mm reformations. For radiation dose reduction, the following was used: automated exposure control, adjustment of mA and/or kV according to patient size. COMPARISON: Chest x-ray 04/05/2020, 08/21/2020, 07/06/2018 FINDINGS: Image quality: Excellent. Lungs and pleura: There is severe centrilobular emphysema. At the left lung apex, there is irregular pleural thickening/subpleural consolidation along the superior and posterior surface with scattered p leural calcifications. There are areas of either cavitation or incorporation of paraseptal emphysemat ous change and questionable fluid level in one of these such cavities. Linear consolidation extends a nteriorly and inferiorly in the left upper lobe there is superior retraction of the left hilar struct ures and mild traction bronchiectasis. Nodular scar in 2 places is seen at the left lung base. An irr egular pleural-based nodule posteriorly in the left lower lobe measures 7 mm (7/134). Mediastinum: Heart size is at the upper limits of normal.. No pericardial effusion. There is a sin gle mildly prominent precarinal lymph node measuring 1.0 cm in short axis. No other mediastinal or hi lar adenopathy by size criteria. Thoracic aorta and central pulmonary arteries are normal in size. Esophagus is normal in caliber. No hiatal hernia. Bones and chest wall: No suspicious bony lesions. Mild anterior wedge deformity of the T7 vertebral body and degenerative disc and endplate change in the upper lumbar spine. No axillary or supraclavicu lar adenopathy by size criteria. The thyroid is normal in size and there are no incidental findings. . Abdomen: Visualized upper abdominal solid organs appear normal. Upper abdominal bowel loops are nor mal in caliber. IMPRESSION: 1. Chronic long-standing abnormality of irregular and substantial pleural thickening, calcification, and possibly cavitation in the left lung apex. Air-fluid levels suggest there could potentially be castro perimposed infection if the patient is symptomatic. Clinical correlation is recommended. Differential diagnosis includes severe irregular pleural plaquing due to asbestos exposure or other industrial ex posure superimposed on severe emphysema, as well as chronic or remote infection. Malignancy is much l ess likely given greater than 10 year history of such finding. 2. Severe emphysematous changes or underlying. 3. Single borderline mediastinal lymph node. No other adenopathy. Reviewed by: Kimberlee Mosley MD on 04/21/2021 6:09 PM PST Approved by: Kimberlee Mosley MD on 04/21/2021 6:09 PM PST Station ID: [id number]
== END 2021-04-21 14:37 | disposition home or self-care (01) ==
LOC: DI 14:36
PROVIDERS: ATTEND Emergency Medicine
DX: J18.9 Pneumonia, unspecified organism (principal); R63.4 Abnormal weight loss; J94.8 Other specified pleural conditions; J43.2 Centrilobular emphysema; R59.0 Localized enlarged lymph nodes
CPT/HCPCS: 71260; Q9967

== ENCOUNTER 2021-05-08 10:53 | Outpatient (CLI) | payer MEDICARE ==
[2021-05-08 16:00] LABS: CALCIUM 9.8 mg/dL (8.5-10.3); CREATININE 0.8 mg/dL (0.4-1.0); POTASSIUM 3.9 mmol/L (3.5-5.0)
[2021-05-08 16:11] LABS: THYROID STIMULATING HORMONE 4.05 uIU/mL (0.34-5.60)
[2021-05-11 12:25] LABS: NIL 0.02 IU/mL; TB1-NIL 0.01 IU/mL
== END 2021-05-08 10:54 | disposition home or self-care (01) ==
LOC: LAB.S 10:53
PROVIDERS: ATTEND Registered Nurse
DX: E87.1 Hypo-osmolality and hyponatremia (principal); R53.1 Weakness; R93.89 Abnormal findings on diagnostic imaging of other specified body structures
CPT/HCPCS: 36415; 80048; 81599; 83930; 83935; 84300; 84443; 86480

== ENCOUNTER 2021-05-27 13:52 | Outpatient (CLI) | payer MEDICARE | END 2021-05-27 13:53 | disposition home or self-care (01) | LOC: NS 13:52 | PROVIDERS: ATTEND Registered Nurse | DX: Z71.3 Dietary counseling and surveillance (principal); R63.6 Underweight; R62.7 Adult failure to thrive; Z68.1 Body mass index [BMI] 19.9 or less, adult | CPT/HCPCS: 97802 ==

== ENCOUNTER 2021-07-01 13:55 | Outpatient (CLI) | payer MEDICARE | END 2021-07-01 13:56 | disposition home or self-care (01) | LOC: NS 13:55 | PROVIDERS: ATTEND Registered Nurse | DX: Z71.3 Dietary counseling and surveillance (principal); R62.7 Adult failure to thrive | CPT/HCPCS: 97803 ==

== ENCOUNTER 2021-09-17 08:00 | Outpatient (CLI) | payer MEDICARE ==
[2021-09-17 21:33] LABS: BILIRUBIN,URINE NEGATIVE (NEGATIVE); GLUCOSE, URINE (UA) NEGATIVE (NEGATIVE); KETONES,URINE (UA) NEGATIVE (NEGATIVE); LEUKOCYTE ESTERASE, URINE SMALL (NEGATIVE); NITRITE,URINE NEGATIVE (NEGATIVE); OCCULT BLOOD,URINE TRACE-INTA (NEGATIVE); PH,URINE 5.5 PH (5.0-7.5); PROTEIN,URINE NEGATIVE (NEGATIVE); UROBILINOGEN,URINE 0.2 (NORMAL) E.U./dL (NORMAL)
[2021-09-17 21:47] LABS: CLARITY,URINE CLOUDY (CLEAR)
[2021-09-17 21:59] LABS: RBC,URINE 0-5 /HPF (0-5); WBC,URINE >25 /HPF (0-5)
[2021-09-17 22:00] LABS: BACTERIA,URINE Moderate /HPF (None Seen); SQUAMOUS EPITHELIAL CELL,UR FEW Squamous (<= Few)
== END 2021-09-17 23:59 | disposition home or self-care (01) ==
LOC: LAB.S 08:00
PROVIDERS: ATTEND Emergency Medicine
DX: R30.0 Dysuria (principal)
CPT/HCPCS: 81001; 87077; 87086; 87181

== ENCOUNTER 2021-10-05 08:00 | Outpatient (CLI) | payer MEDICARE | END 2021-10-05 23:59 | disposition home or self-care (01) | LOC: LAB.S 08:00 | PROVIDERS: ATTEND Physician Assistant | DX: N39.0 Urinary tract infection, site not specified (principal) | CPT/HCPCS: 87086; 87181 ==

== ENCOUNTER 2021-11-18 08:00 | Outpatient (CLI) | payer MEDICARE ==
--- NOTE | 2021-11-18 18:02 | XRAY Report ---
PROCEDURE: Chest 2 View X-Ray INDICATIONS: COUGH TECHNIQUE: 2 view(s) of the chest. COMPARISON: None. FINDINGS: Surgical changes and devices: None. Lungs and pleura: Chronic appearing diffuse interstitial prominence. Redemonstration of severe upper lobe predominant pulmonary emphysematous changes. Previously seen left apical consolidation is less prominent although there is a residual cavitary lesion in the left apex measuring approximately 4.7 x 3.8 cm. There is suggestion of mild peripheral densities within this cavitary lesion. No air-fluid l evels seen. Patchy bibasilar opacities likely representing atelectasis. No pneumothorax. No substanti al pleural effusion. Mediastinum: Mediastinal contours are normal. Heart size is normal. Bones and chest wall: No suspicious bony abnormalities. Soft tissues appear unremarkable. IMPRESSION: 1. Interval development of cavitary lesion in the left lung apex at site of previously seen consolida tion with suggestion of possible foci of peripheral density. No air-fluid levels seen. Findings may r epresent sequela of previous pneumonia although resolving lung abscess/fungal infection may have a si milar appearance. Tubercular microbacterial disease may also have a similar appearance. Additionally, underlying neoplastic process is not excluded. Recommend clinical correlation as well as follow-up c ontrast enhanced chest CT to further evaluate. 2. Severe upper lung zone predominant pulmonary emphysema. Reviewed by: Matthew Dennis MD on 11/18/2021 6:01 PM PDT Approved by: Matthew Dennis MD on 11/18/2021 6:01 PM PDT Station ID: [id number]
== END 2021-11-18 23:59 | disposition home or self-care (01) ==
LOC: DI.S 08:00
PROVIDERS: ATTEND Registered Nurse
DX: R91.8 Other nonspecific abnormal finding of lung field (principal); J43.9 Emphysema, unspecified

== ENCOUNTER 2021-11-19 08:00 | Outpatient (CLI) | payer MEDICARE | END 2021-11-19 23:59 | disposition home or self-care (01) | LOC: LAB.S 08:00 | PROVIDERS: ATTEND Registered Nurse | DX: R05.9 Cough, unspecified (principal) | CPT/HCPCS: 87070; 87181; 87205 ==

== ENCOUNTER 2021-11-29 13:48 | Outpatient (CLI) | payer MEDICARE ==
[2021-11-29 20:12] LABS: CREATININE 0.8 mg/dL (0.4-1.0)
== END 2021-11-29 13:49 | disposition home or self-care (01) ==
LOC: LAB.S 13:48
PROVIDERS: ATTEND Registered Nurse
DX: R93.89 Abnormal findings on diagnostic imaging of other specified body structures (principal)
CPT/HCPCS: 36415; 82565

== ENCOUNTER 2021-12-03 13:05 | Outpatient (CLI) | payer MEDICARE ==
--- NOTE | 2021-12-03 16:25 | Ultrasound Report ---
PROCEDURE: Abdomen Complete INDICATIONS: UNINTENTIONAL WEIGHT LOSS TECHNIQUE: Real-time scanning was performed of the abdominal and retroperitoneal organs, with image documentatio n. COMPARISON: Abdominal ultrasound 09/08/2017. FINDINGS: Liver: Liver is normal in size and homogeneous in echotexture. Gallbladder: The gallbladder appears normal without gallstones or gallbladder wall thickening. There is no pericholecystic fluid. Sonographic Barnhart sign is negative. Biliary ducts: Intrahepatic bile ducts are non-dilated. Extrahepatic bile duct caliber measures 5 m m. Normal is 6-7 mm or less in diameter, or 10 mm or less post-cholecystectomy. Pancreas: Visualized portions of the pancreas are sonographically normal. Spleen: Spleen is normal in size and homogeneous in echotexture. Kidneys: Kidneys are normal in size and echotexture. Right kidney measures 9.5 cm long; left kidney measures 9.5 cm long. No hydronephrosis or nephrolithiasis. No solid masses. Aorta: Visualized aorta is normal in caliber at less than 3 cm. Aortic and vascular calcifications are present Iliacs: Proximal common iliac arteries are normal in caliber at less than 2.5 cm. IVC: Intrahepatic inferior vena cava is patent. Miscellaneous: No free abdominal fluid. IMPRESSION: Abdominal ultrasound is within normal limits. Reviewed by: Ra Riley MD on 12/03/2021 4:23 PM PDT Approved by: Ra Riley MD on 12/03/2021 4:23 PM PDT Station ID: [id number]
== END 2021-12-03 13:06 | disposition home or self-care (01) ==
LOC: DI 13:05
PROVIDERS: ATTEND Registered Nurse
DX: R63.4 Abnormal weight loss (principal); R62.7 Adult failure to thrive

== ENCOUNTER 2021-12-16 14:33 | Outpatient (CLI) | payer MEDICARE ==
--- NOTE | 2021-12-16 16:48 | CT Report ---
PROCEDURE: CHEST W INDICATIONS: CAVITARY PNA CONTRAST: IV CONTRAST: Optiray 320 ml: 80 PO CONTRAST: *NO PO CONTRAST TECHNIQUE: After the administration of intravenous contrast, 1 mm axial images were acquired from the pulmonary apices through the posterior costophrenic angles. Axial 5 mm soft tissue kernel reconstructions were performed as well as 8 mm axial MIP and coronal and sagittal 5 mm reformations. For radiation dose reduction, the following was used: automated exposure control, adjustment of mA and/or kV according to patient size. COMPARISON: 04/21/2021, chest x-ray 07/06/2018 FINDINGS: Image quality: Excellent. Lungs and pleura: Interval progression of parenchymal destruction of the left lung apex with promine nt, heterogeneously calcified pleural thickening, further pleural-based low-density pockets, thickene d soft tissue, and central cavitation. There is superior retraction of the left hilar structures, and increasingly incorporated into the superomedial pleural scarring. Findings are superimposed on a felix kground of severe centrilobular and bullous emphysematous changes. Additionally, there is increasing irregular linear pleural thickening anteriorly and laterally along the major fissure in the left uppe r lobe. There is associated traction bronchiectasis of peripheral airways. Increasing irregular pleur al plaquing and fibrosis anteriorly along the right minor fissure in the right upper lobe and anterio rly in the left lower lobe lung base. Minor reticulation is seen at both lung bases, however no other classic changes of peripheral subpleural fibrosis are seen. There are no groundglass opacities or pleural effusions. Mediastinum: Heart size is mildly enlarged. Moderate coronary artery calcification. No pericardial e ffusion. Prominent precarinal lymph node measures 1.1 cm in short axis, similar to minimally larger c ompared to the prior study. There is a mildly prominent AP window lymph node. This has minimally incr eased in size from 0.5 to 0.7 cm. Thoracic aorta and central pulmonary arteries are normal in size. Esophagus is normal in caliber. No hiatal hernia. Bones and chest wall: Minimal, stable T7 anterior wedge deformity. No new compression fractures or suspicious bone lesions.. No axillary or supraclavicular adenopathy by size criteria. Diminutive in size, normal morphology.. Abdomen: Visualized upper abdominal solid organs appear normal. Upper abdominal bowel loops are nor mal in caliber. IMPRESSION: 1. Progression of heterogeneous, dense left apical pleural plaquing and cavitation at the left lung a pex. 2. There are new areas of other scattered pleural-based fibrotic changes in both lungs in mid and low er lung zones. 3. Mild increase in 2 reactive mediastinal lymph nodes. 4. Given the increasing cavitation in the left lung apex, the patient is at risk for developing under lying fungal infection. The overall parenchymal pattern raises possibility of nonspecific interstitia l pneumonia, sarcoidosis, connective tissue disorder, mycobacterial infection. Malignancy is less lik susan but not entirely excluded. There are no invasive features along the pleural surface. CLINICAL RECOMMENDATION STATEMENTS: In patients <35 years with an ITN detected on CT, MRI, or extrathyroidal ultrasound, the Committee re commends further evaluation with dedicated thyroid ultrasound if the nodule is "e1 cm and has no susp icious imaging features, and if the patient has normal life expectancy. In patients "e35 years with an ITN detected on CT, MRI, or extrathyroidal ultrasound, the Committee r ecommends further evaluation with dedicated thyroid ultrasound if the nodule is "e1.5 cm and has no s uspicious imaging features, and if the patient has normal life expectancy. (ACR, 2014) Reviewed by: Kimberlee Mosley MD on 12/16/2021 4:46 PM PDT Approved by: Kimberlee Mosley MD on 12/16/2021 4:46 PM PDT Station ID: [id number]
== END 2021-12-16 14:34 | disposition home or self-care (01) ==
LOC: DI 14:33
PROVIDERS: ATTEND Registered Nurse
DX: J18.8 Other pneumonia, unspecified organism (principal); J84.10 Pulmonary fibrosis, unspecified
CPT/HCPCS: 71260; Q9967

== ENCOUNTER 2022-01-13 13:15 | Outpatient (CLI) | payer MEDICARE ==
[2022-01-18 16:08] LABS: OVA + PARASITE EXAM Final report (.)
== END 2022-01-13 23:59 | disposition home or self-care (01) ==
LOC: LAB.S 13:15
PROVIDERS: ATTEND Registered Nurse
DX: R19.7 Diarrhea, unspecified (principal)
CPT/HCPCS: 87045; 87046; 87177; 87209; 87427

== ENCOUNTER 2022-01-30 14:00 | Outpatient (CLI) | payer MEDICARE | END 2022-01-30 23:59 | disposition home or self-care (01) | LOC: LAB 14:00 | PROVIDERS: ATTEND Internal Medicine | DX: R05.9 Cough, unspecified (principal); R93.89 Abnormal findings on diagnostic imaging of other specified body structures | CPT/HCPCS: 81599; 87070; 87106; 87205; 87206 ==

== ENCOUNTER → 2022-02-05 | Outpatient (CLI) | payer MEDICARE | LOC: LAB.R 08:00 | PROVIDERS: ATTEND Internal Medicine | DX: R05.9 Cough, unspecified (principal); R93.89 Abnormal findings on diagnostic imaging of other specified body structures | CPT/HCPCS: 81599 ==

== ENCOUNTER → 2022-02-06 | Outpatient (CLI) | payer MEDICARE | LOC: LAB.R 08:00 | PROVIDERS: ATTEND Internal Medicine | DX: R05.9 Cough, unspecified (principal); R93.89 Abnormal findings on diagnostic imaging of other specified body structures | CPT/HCPCS: 81599 ==

== ENCOUNTER 2022-02-07 08:00 | Outpatient (CLI) | payer MEDICARE | END 2022-02-07 23:59 | disposition home or self-care (01) | LOC: LAB.R 08:00 | PROVIDERS: ATTEND Internal Medicine | DX: R05.9 Cough, unspecified (principal); R93.89 Abnormal findings on diagnostic imaging of other specified body structures | CPT/HCPCS: 81599; 87015; 87116; 87206; 87556; 87798 ==

== ENCOUNTER 2022-02-23 12:06 | Emergency (ER) | payer MEDICARE ==
[2022-02-23 12:56] LABS: BASOPHILS % (AUTO) 0.2 %; HCT - HEMATOCRIT 29.3 % (37.0-47.0); HGB - HEMOGLOBIN 9.1 g/dL (12.0-16.0); LYMPHOCYTES # (AUTO) 0.8 10^3/uL (1.5-3.5); LYMPHOCYTES % (AUTO) 4.3 %; MEAN CORPUSCULAR HEMOGLOBIN 27.7 pg (27.0-31.0); MEAN CORPUSCULAR HGB CONC 31.1 g/dL (32.0-36.0); MEAN CORPUSCULAR VOLUME 89.3 fL (81.0-99.0); MEAN PLATELET VOLUME 8.5 fL (7.9-10.8); MONOCYTES # (AUTO) 1.1 10^3/uL (0.0-1.0); MONOCYTES % (AUTO) 6.2 %; NEUTROPHILS # (AUTO) 15.7 10^3/uL (1.5-6.6); NEUTROPHILS % (AUTO) 88.7 %; PLT - PLATELET COUNT 506 10^3/uL (130-450); RED BLOOD COUNT 3.28 10^6/uL (4.20-5.40); RED CELL DISTRIBUTION WIDTH 16.5 % (12.0-15.0); WHITE BLOOD COUNT 17.6 x10^3/uL (4.8-10.8)
[2022-02-23 13:18] LABS: ALBUMIN 2.8 g/dL (3.2-5.5); ALBUMIN/GLOBULIN RATIO 0.6 (1.0-2.2); BILIRUBIN,TOTAL 0.3 mg/dL (0.2-1.0); CALCIUM 8.9 mg/dL (8.5-10.3); CREATININE 1.1 mg/dL (0.4-1.0); MAGNESIUM 1.5 mg/dL (1.7-2.8); POTASSIUM 3.5 mmol/L (3.5-5.0); TOTAL PROTEIN 7.3 g/dL (6.7-8.2)
[2022-02-23 15:10] LABS: BILIRUBIN,URINE NEGATIVE (NEGATIVE); GLUCOSE, URINE (UA) NEGATIVE (NEGATIVE); KETONES,URINE (UA) NEGATIVE (NEGATIVE); LEUKOCYTE ESTERASE, URINE LARGE (NEGATIVE); NITRITE,URINE NEGATIVE (NEGATIVE); OCCULT BLOOD,URINE MODERATE (NEGATIVE); PROTEIN,URINE 100 mg/dL (NEGATIVE); UROBILINOGEN,URINE 0.2 (NORMAL) E.U./dL (NORMAL)
[2022-02-23 15:12] LABS: CLARITY,URINE CLOUDY (CLEAR)
[2022-02-23] MEDS ORDERED: SODIUM CHLORIDE 0.9% 1,000 ML IV STA (15:21)
[2022-02-23 15:22] LABS: BACTERIA,URINE Many /HPF (None Seen); SQUAMOUS EPITHELIAL CELL,UR FEW Squamous (<= Few); WBC,URINE >25 /HPF (0-5)
[2022-02-23] MEDS ORDERED: TOLTERODINE LA 2 MG CAPSULE PO STA (15:23)
[2022-02-23] MEDS ORDERED: cefTRIAXone 1 GM VIAL IVP STA (15:25)
--- NOTE | 2022-02-23 15:44 | ED Physician Documentation ---
History of Present Illness - Stated complaint Stated Complaint: CONFUSION - Chief complaint Chief Complaint: General - History obtained from History obtained from: Patient, Family - History of Present Illness Pain level max: 0 Pain level now: 0 - Additonal information Additional information: Patient is an 81-year-old female who presents to the emergency department with complaints of generalized weakness. This been ongoing for the past 6 months or so. She has a known cavitary lesion in the left upper lung. She is scheduled to see pulmonology next week. Her son states that she was confused about 3 days ago, not confused now. No fevers. No chills. She does have urinary frequency that has been present for the past several weeks. She has been treated for UTI in the past. No back pain. No abdominal pain. She states that about 6 months ago her weight was 120 pounds, she states she is now down to 80 pounds. Her PCP sent her here for dehydration and further evaluation. Review of Systems Constitutional: denies: Fever, Chills Nose: denies: Rhinorrhea / runny nose, Congestion Respiratory: reports: Cough GI: denies: Abdominal Pain, Nausea, Vomiting, Diarrhea, Hematemesis, Bloody / black stool : reports: Dysuria, Frequency, Hesitancy Skin: denies: Rash Musculoskeletal: denies: Neck pain, Back pain Neurologic: denies: Headache PD PAST MEDICAL HISTORY - Past Medical History Past Medical History: Yes Cardiovascular: None Respiratory: COPD, Emphysema Endocrine/Autoimmune: HyPOthyroidism GI: Chronic diarrhea : Frequency HEENT: Chronic sinusitis Psych: Anxiety Musculoskeletal: Osteoarthritis Derm: Other - Past Surgical History Past Surgical History: Yes 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 - Present Medications Home Medications: Ambulatory Orders Medication Instructions Recorded Confirmed Cetirizine [ZyrTEC] 10 mg PO DAILY 01/20/16 02/23/22 Cholecalciferol (Vitamin D3) 400 unit PO DAILY 01/20/16 02/23/22 [Vitamin D3] Guaifenesin [Mucinex] 600 mg PO DAILY PRN 01/20/16 02/23/22 Albuterol Sulf [Ventolin Hfa 1 - 2 puffs INH Q4HR PRN 02/23/22 02/23/22 Inhaler] Ascorbic Acid [Vitamin C] 500 mg ORAL DAILY 02/23/22 02/23/22 Cefdinir 300 mg PO BID #10 cap 02/23/22 Estrogens, Conjugated [Premarin] 0.625 mg PO DAILY 02/23/22 02/23/22 Levothyroxine Sodium 50 mcg PO DAILY 02/23/22 02/23/22 [Levothyroxine] Mecobalamin [B12 Active] 1,000 mcg PO DAILY 02/23/22 02/23/22 Meloxicam [Mobic] 7.5 mg PO BID PRN 02/23/22 02/23/22 PARoxetine HCl [Paxil] 5 mg PO DAILY 02/23/22 02/23/22 Tolterodine Tartrate [Detrol LA] 2 mg PO DAILY #30 cap 02/23/22 Triamcinolone Acetonide [Nasacort] 1 spr NS DAILY 02/23/22 02/23/22 - Allergies Allergies/Adverse Reactions: Allergies Allergy/AdvReac Type Severity Reaction Status Date / Time acetaminophen [From Tylenol] Allergy Rash Verified 02/23/22 12:18 cephalexin Allergy Unknown Verified 02/23/22 12:20 Influenza Virus Vaccines Allergy Rash Verified 02/23/22 12:18 oxybutynin Allergy Unknown Verified 02/23/22 12:20 prednisone Allergy Edema Verified 02/23/22 12:18 - Social History Does the pt smoke?: No Smoking Status: Light tobacco smoker Does the pt drink ETOH?: No Does the pt have substance abuse?: No - Immunizations Immunizations are current?: Yes PD ED PE NORMAL - Vitals Vital signs reviewed: Yes - General General: Alert and oriented X 3, Other (Thin, frail, cachectic female) - HEENT HEENT: PERRL, Moist mucous membranes - Neck Neck: Supple, no meningeal sign - Cardiac Cardiac: RRR, Strong equal pulses - Respiratory Respiratory: No respiratory distress, Clear bilaterally - Abdomen Abdomen: Soft, Non tender, Non distended - Derm Derm: Warm and dry, No rash - Extremities Extremities: No edema, No calf tenderness / cord - Neuro Neuro: Alert and oriented X 3 - Psych Psych: Normal mood, Normal affect Results - Vitals Vitals: Vital Signs - 24 hr 02/23/22 02/23/22 02/23/22 12:11 15:31 17:23 Temperature 36.9 C Heart Rate 112 H 88 94 Respiratory 18 24 Rate Blood Pressure 118/81 H 111/61 106/76 O2 Saturation 100 92 Oxygen O2 Source Room air - Labs Labs: Laboratory Tests 02/23/22 02/23/22 02/23/22 12:49 12:49 14:45 WBC 17.6 H RBC 3.28 L Hgb 9.1 L Hct 29.3 L MCV 89.3 MCH 27.7 MCHC 31.1 L RDW 16.5 H Plt Count 506 H MPV 8.5 Neut # (Auto) 15.7 H Lymph # (Auto) 0.8 L Long # (Auto) 1.1 H Eos # (Auto) 0.0 Baso # (Auto) 0.0 Absolute Nucleated RBC 0.00 Nucleated RBC % 0.0 Sodium 128 L Potassium 3.5 Chloride 94 L Carbon Dioxide 22 Anion Gap 12.0 BUN 29 H Creatinine 1.1 H Estimated GFR (MDRD) 48 L Glucose 140 H Calcium 8.9 Phosphorus 3.0 Magnesium 1.5 L Total Bilirubin 0.3 AST 20 ALT 12 Alkaline Phosphatase 83 Total Protein 7.3 Albumin 2.8 L Globulin 4.5 H Albumin/Globulin Ratio 0.6 L Urine Color Urine Clarity Urine pH Ur Specific [place] Urine Protein Urine Glucose (UA) Urine Ketones Urine Occult Blood Urine Nitrite Urine Bilirubin Urine Urobilinogen Ur Leukocyte Esterase Urine RBC Urine WBC Ur Squamous Epith Cells Urine Bacteria Ur Microscopic Review Urine Culture Comments Nasal Adenovirus (PCR) NOT DETECTED Nasal B. parapertussis DNA (PCR) NOT DETECTED Nasal Coronavir 229E PCR NOT DETECTED Nasal Coronavir HKU1 PCR NOT DETECTED Nasal Coronavir NL63 PCR NOT DETECTED Nasal Coronavir OC43 PCR NOT DETECTED Nasal Enterovir/Rhinovir PCR NOT DETECTED Nasal Influenza B PCR NOT DETECTED Nasal Influenza A PCR NOT DETECTED Nasal Parainfluen 1 PCR NOT DETECTED Nasal Parainfluen 2 PCR NOT DETECTED Nasal Parainfluen 3 PCR NOT DETECTED Nasal Parainfluen 4 PCR NOT DETECTED Nasal RSV (PCR) NOT DETECTED Nasal B.pertussis DNA PCR NOT DETECTED Nasal C.pneumoniae (PCR) NOT DETECTED Yaya Human Metapneumo PCR NOT DETECTED Nasal M.pneumoniae (PCR) NOT DETECTED Nasal SARS-CoV-2 (PCR) DETECTED A 02/23/22 14:57 WBC RBC Hgb Hct MCV MCH MCHC RDW Plt Count MPV Neut # (Auto) Lymph # (Auto) Long # (Auto) Eos # (Auto) Baso # (Auto) Absolute Nucleated RBC Nucleated RBC % Sodium Potassium Chloride Carbon Dioxide Anion Gap BUN Creatinine Estimated GFR (MDRD) Glucose Calcium Phosphorus Magnesium Total Bilirubin AST ALT Alkaline Phosphatase Total Protein Albumin Globulin Albumin/Globulin Ratio Urine Color YELLOW Urine Clarity CLOUDY Urine pH 6.0 Ur Specific [place] 1.020 Urine Protein 100 H Urine Glucose (UA) NEGATIVE Urine Ketones NEGATIVE Urine Occult Blood MODERATE H Urine Nitrite NEGATIVE Urine Bilirubin NEGATIVE Urine Urobilinogen 0.2 (NORMAL) Ur Leukocyte Esterase LARGE H Urine RBC 6-10 H Urine WBC >25 H Ur Squamous Epith Cells FEW Squamous Urine Bacteria Many H Ur Microscopic Review INDICATED Urine Culture Comments INDICATED Nasal Adenovirus (PCR) Nasal B. parapertussis DNA (PCR) Nasal Coronavir 229E PCR Nasal Coronavir HKU1 PCR Nasal Coronavir NL63 PCR Nasal Coronavir OC43 PCR Nasal Enterovir/Rhinovir PCR Nasal Influenza B PCR Nasal Influenza A PCR Nasal Parainfluen 1 PCR Nasal Parainfluen 2 PCR Nasal Parainfluen 3 PCR Nasal Parainfluen 4 PCR Nasal RSV (PCR) Nasal B.pertussis DNA PCR Nasal C.pneumoniae (PCR) Yaya Human Metapneumo PCR Nasal M.pneumoniae (PCR) Nasal SARS-CoV-2 (PCR) - Rads (name of study) Ct chest Radiology: Final report received, EMP read contemporaneously, See rad report CT abd/pelvis Radiology: Final report received, EMP read contemporaneously, See rad report PD MEDICAL DECISION MAKING - ED course Complexity details: reviewed results, re-evaluated patient, considered differential, d/w patient, d/w family ED course: Patient is an 81-year-old female who presents to the emergency department with dehydration. She was given IV fluids and does feel better. She is tolerating p.o. without difficulty. CT scans do not show any new significant findings. She is positive for COVID. She states that she may have been exposed to COVID 1 to 2 weeks ago. She also appears to have a UTI. Will place on antibiotics for this. Patient is well-appearing, nontoxic. She does appear to be significantly malnutrition. She is following up with her doctor regarding this. She also requests to try medication for an overactive bladder. We will trial her on Detrol as she did not tolerate oxybutynin. Patient and family counseled regarding signs and symptoms for which I believe and urgent re-evaluation would be necessary. Patient with good understanding of and agreement to plan and is comfortable going home at this time This document was made in part using voice recognition software. While efforts are made to proofread this document, sound alike and grammatical errors may occur. 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 Stable appearance of cavitation within the left apex. While this could represent necrotic malignancy, other etiologies such as infection including fungal, sarcoid, mycobacterial or connective tissue disorder should be considered. IMPRESSION: Pulmonary opacities as above. Please see CT chest report of 02/23/2022 for further details. Diffuse appearance of bladder wall thickening. This could be secondary to incomplete distention. However, similar appearance can also seen with cystitis and other infiltrative etiologies. Recommend correlation to laboratory values and other clinical history. Calcification in the bladder base which may be secondary to a recently passed stone of indeterminate age. Departure - Departure Disposition: 01 Home, Self Care Clinical Impression: Dehydration, COVID-19, Cavitary lesion of lung UTI (urinary tract infection) Qualifiers: Urinary tract infection type: site unspecified Hematuria presence: without hematuria Qualified Code(s): N39.0 - Urinary tract infection, site not specified Anemia Qualifiers: Anemia type: unspecified type Qualified Code(s): D64.9 - Anemia, unspecified Condition: Good Instructions: ED Dehydration, ED UTI Cystitis Female Follow-Up: Beatrice Diaz ARNP [Primary Care Provider] - Within 1 week Prescriptions: Cefdinir 300 mg PO BID #10 cap Tolterodine Tartrate [Detrol LA] 2 mg PO DAILY #30 cap Comments: Please follow-up with your doctor for further care. We will place you on oral antibiotics for home. Please make sure you are drinking plenty of fluids. You were given IV fluids here tonight as well. You are also given a dose of Rocephin. Please follow-up with your hat brim and crown laminating operator next week to determine the next step for your lung lesion. Discharge Date/Time: 02/23/22 17:30
[2022-02-23] MEDS ORDERED: iohexoL-300 100 ML VIAL ONE (15:45)
[2022-02-23 15:57] LABS: B. PARAPERTUSSIS- RESP PCR PAN NOT DETECTED; B. PERTUSSIS- RESP PCR PANEL NOT DETECTED; C. PNEUMONIAE- RESP PCR PANEL NOT DETECTED; CORONAVIRUS 229E-RESP PCR NOT DETECTED; CORONAVIRUS HKU1-RESP PCR NOT DETECTED; CORONAVIRUS NL63-RESP PCR NOT DETECTED; CORONAVIRUS OC43-RESP PCR NOT DETECTED; HUMAN METAPNEUMOVIRUS NOT DETECTED; INFLUENZA A- RESP PCR PANEL NOT DETECTED; INFLUENZA B - RESP PCR PANEL NOT DETECTED; M. PNEUMONIAE- RESP PCR PANEL NOT DETECTED; PARAINFLUENZA VIRUS 1 NOT DETECTED; PARAINFLUENZA VIRUS 2 NOT DETECTED; PARAINFLUENZA VIRUS 3 NOT DETECTED; PARAINFLUENZA VIRUS 4 NOT DETECTED; RHINOVIRUS/ENTEROVIRUS NOT DETECTED; RSV- RESP PCR PANEL NOT DETECTED
[2022-02-23 15:58] LABS: SARS-CoV-2 -RESP PCR PANEL DETECTED
--- NOTE | 2022-02-23 16:30 | CT Report ---
PROCEDURE: CHEST W INDICATIONS: dyspnea, 40lb weight loss in 6 months CONTRAST:100mL Omni 300 TECHNIQUE: After the administration of intravenous contrast, 1 mm axial images were acquired from the pulmonary apices through the posterior costophrenic angles. Axial 5 mm soft tissue kernel reconstructions were performed as well as 8 mm axial MIP and coronal and sagittal 5 mm reformations. For radiation dose reduction, the following was used: automated exposure control, adjustment of mA and/or kV according to patient size. COMPARISON: CT chest 12/16/2021 FINDINGS: Image quality: Excellent. Lungs and pleura: Emphysematous changes are present bilaterally. There are increased areas of superim posed parenchymal opacities identified within the left base and lateral right upper lobe compared to prior exam. Previously identified left apical parenchymal opacities with areas of cavitation and vers ed retraction in the left hilar region are unchanged. Fracture bronchiectasis is present. Pleural pac jayy fibrosis is present anteriorly in the right minor fissure and anterior left lower lobe. No pleur al effusions or pneumothorax. Central and peripheral airways are patent and normal in caliber. Mediastinum: Heart size is normal. No pericardial effusion. Enlarged mediastinal lymph nodes are un changed.. Thoracic aorta and central pulmonary arteries are normal in size. Esophagus is normal in caliber. No hiatal hernia. Bones and chest wall: No suspicious bony lesions. No vertebral body compression fractures. No axil missy or supraclavicular adenopathy by size criteria. The thyroid is normal in size and there are no incidental findings.. Abdomen: Visualized upper abdominal solid organs appear normal. Upper abdominal bowel loops are nor mal in caliber. IMPRESSION: Interval progression of bibasilar opacities suggestive of acute airspace disease such as pneumonia up on chronic underlying lung disease. Stable appearance of cavitation within the left apex. While this could represent necrotic malignancy, other etiologies such as infection including fungal, sarcoid, mycobacterial or connective tissue dis order should be considered. CLINICAL RECOMMENDATION STATEMENTS: In patients <35 years with an ITN detected on CT, MRI, or extrathyroidal ultrasound, the Committee re commends further evaluation with dedicated thyroid ultrasound if the nodule is "e1 cm and has no susp icious imaging features, and if the patient has normal life expectancy. In patients "e35 years with an ITN detected on CT, MRI, or extrathyroidal ultrasound, the Committee r ecommends further evaluation with dedicated thyroid ultrasound if the nodule is "e1.5 cm and has no s uspicious imaging features, and if the patient has normal life expectancy. (ACR, 2014) Reviewed by: Nannette Barrera MD on 02/23/2022 4:29 PM PST Approved by: Nannette Barrera MD on 02/23/2022 4:29 PM PST Station ID: [id number]
--- NOTE | 2022-02-23 16:34 | CT Report ---
PROCEDURE: ABDOMEN/PELVIS W INDICATIONS: dyspnea, 40lb weight loss in 6 months CONTRAST: 100mL Omni 300 TECHNIQUE: After the administration of IV contrast, 5 mm thick sections acquired from the diaphragms to the symp hysis. 5 mm thick coronal and sagittal reformats were acquired. For radiation dose reduction, the f ollowing was used: automated exposure control, adjustment of mA and/or kV according to patient size. COMPARISON: CT chest 02/23/2022, , ultrasound abdomen 09/08/2017 FINDINGS: Image quality: Excellent. ABDOMEN: Lung bases: Pulmonary opacities and emphysematous changes predominantly in the left lower lobe. Heart size is normal. Solid organs: Liver and spleen are normal in size and enhancement. Gallbladder is unremarkable Hector iary system is non dilated. Pancreas enhances normally. No adrenal nodules. Kidneys demonstrate no rmal size and enhancement, without hydronephrosis. Nonobstructing inferior right renal pole calculus . Peritoneum and bowel: Bowel loops demonstrate normal wall thickness and caliber. No free fluid or a ir. Nodes and vessels: No retroperitoneal or mesenteric adenopathy by size criteria. Aorta and inferior vena cava are normal in size. Miscellaneous: No ventral hernias. PELVIS: Genitourinary: Bladder demonstrates a diffuse appearance of wall thickening. It is incompletely dist ended. Calcification is noted at the DIP dependent portion of the bladder. Miscellaneous: No inguinal hernias or adenopathy. Bones: No suspicious bony lesions. No vertebral body compression fractures. IMPRESSION: Pulmonary opacities as above. Please see CT chest report of 02/23/2022 for further details. Diffuse appearance of bladder wall thickening. This could be secondary to incomplete distention. Benitez kristy, similar appearance can also seen with cystitis and other infiltrative etiologies. Recommend roderick elation to laboratory values and other clinical history. Calcification in the bladder base which may be secondary to a recently passed stone of indeterminate age. Reviewed by: Nannette Barrera MD on 02/23/2022 4:32 PM PST Approved by: Nannette Barrera MD on 02/23/2022 4:32 PM PST Station ID: [id number]
[2022-02-23] MEDS ORDERED: iohexoL-300 100 ML VIAL IVP ONE (16:39)
[2022-02-23 17:24] VITALS: BP 106/76
== END 2022-02-23 17:30 | disposition home or self-care (01) ==
LOC: ED 12:06
DX: U07.1 COVID-19 (principal); N39.0 Urinary tract infection, site not specified; E86.0 Dehydration; R63.4 Abnormal weight loss; R91.1 Solitary pulmonary nodule; D64.9 Anemia, unspecified; Z72.0 Tobacco use
CPT/HCPCS: 36415; 71260; 74177; 80053; 81001; 83735; 84100; 85025; 87077; 87086; 87181; 87633; 96361; 96374; 99284; Q9967; 81003